=== PATIENT | male | born 1955 | race Hispanic/Latino ===

== ENCOUNTER 2018-10-19 14:41 | Emergency (ER) | payer SELFPAY ==
[2018-10-19] MEDS ORDERED: IBUPROFEN 400 MG TAB ONE (17:35)
--- NOTE | 2018-10-19 18:07 | RAD REPORT ---
EXAM DESCRIPTION: RAD - Knee Right 3 View - 10/19/2018 5:56 pm CLINICAL HISTORY: Right knee pain. FINDINGS: No fracture or dislocation is seen. The bones are osteoporotic. Marked osteoarthritis involves medial compartment consisting joint space narrowing and osteophytes. Patellofemoral compartments and lateral compartments are also involved
--- NOTE | 2018-10-19 18:56 | EDPHYS ---
Physician Documentation [facility] Name: Rishabh Jackson Age: 62 yrs Sex: Male : 1955 Arrival Date: 10/19/2018 Time: 14:45 Bed Treatment Private MD: ED Physician Oli Cox HPI: 10/19 17:09 This 62 yrs old Male presents to ER via Ambulatory with complaints of Knee cp Pain. 17:10 The patient presents with pain, that is acute. cp 17:10 The complaints affect the right knee. Context: resulted from an unknown cause, the cp patient can fully bear weight, the patient is able to ambulate, with moderate difficulty, history of previous surgery. Onset: The symptoms/episode began/occurred yesterday. Associated signs and symptoms: Pertinent positives: radiating pain described as spasm down front of right lower leg, Pertinent negatives calf tenderness, numbness, warmth. Treatment prior to arrival includes: no previous treatment. Historical: - Allergies: 15: No Known Allergies; tw2 - Home Meds: 15:01 None [Active]; tw2 - PSHx: 15:01 RIGHT KNEE SX (40yrs ago); tw2 - Immunization history:: Adult Immunizations. - Social history:: Smoking status: . - Ebola Screening: : Patient denies travel to an Ebola-affected area in the 21 days before illness onset. ROS: 17:20 Constitutional: Negative for body aches, chills, fever, poor PO intake. cp 17:20 Eyes: Negative for injury, pain, redness, and discharge. cp 17:20 ENT: Negative for drainage from ear(s), ear pain, sore throat, difficulty swallowing, difficulty handling secretions. 17:20 Cardiovascular: Negative for chest pain, edema, palpitations. 17:20 Respiratory: Negative for cough, shortness of breath, wheezing. 17:20 Abdomen/GI: Negative for abdominal pain, nausea, vomiting, and diarrhea. 17:20 MS/extremity: Positive for pain, tenderness, of the right knee, Negative for injury or acute deformity, decreased range of motion, paresthesias, warmth. 17:20 All other systems are negative. Exam: 17:25 Constitutional: The patient appears in no acute distress, alert, awake, cp non-diaphoretic, non-toxic, well developed, well nourished. 17:25 Head/Face: Normocephalic, atraumatic. cp 17:25 Eyes: Periorbital structures: appear normal, Conjunctiva: normal, no exudate, no injection, Sclera: no appreciated abnormality, Lids and lashes: appear normal. 17:25 ENT: External ear(s): are unremarkable, Nose: is normal, Mouth: is normal, Posterior pharynx: Airway: no evidence of obstruction, patent. 17:25 Chest/axilla: Inspection: normal. 17:25 Cardiovascular: Rate: normal, Rhythm: regular, Edema: is not appreciated. 17:25 Respiratory: the patient does not display signs of respiratory distress, Respirations: normal, no use of accessory muscles, no retractions, no splinting, no tachypnea. 17:25 Musculoskeletal/extremity: Extremities: grossly normal except: noted in the right knee: pain, tenderness, mild swelling lateral joint line right knee, There is no evidence of decreased ROM, erythema, ROM: limited passive range of motion due to pain, in the right knee, DVT Exam: no swelling, no tenderness, negative Homans' sign noted on exam, no erythema, no increased warmth. Vital Signs: 14:59 BP 142 / 84; Pulse 72; Resp 17; Temp 97.4(TE); Pulse Ox 97% on R/A; Weight 79.38 kg tw2 (R); Pain 0/10; 18:30 Pain 0/10; ss 14:59 "when it happens it a 10 of 10" tw2 MDM: 16:51 Patient medically screened. cp 17:30 Differential diagnosis: closed fracture, tendonitis, ligament injury, meniscus tear, cp effusion. 18:54 Data reviewed: vital signs, nurses notes, radiologic studies, plain films. cp 18:54 Test interpretation: by ED physician or midlevel provider: plain radiologic studies. cp Counseling: I had a detailed discussion with the patient and/or guardian regarding: the historical points, exam findings, and any diagnostic results supporting the discharge/admit diagnosis, radiology results, the need for outpatient follow up, a orthopedic surgeon, to return to the emergency department if symptoms worsen or persist or if there are any questions or concerns that arise at home. Response to treatment: the patient's symptoms have markedly improved after treatment, and as a result, I will discharge patient. 10/19 17:09 Order name: XRAY Knee RIGHT 3 view cp Administered Medications: 17:25 Drug: Ibuprofen 800 mg Route: PO; ss 19:05 Follow up: Response: No adverse reaction; Marked relief of symptoms; Pain is decreased ss Disposition: 10/20 07:28 Co-signature as Attending Physician, Oli Cox MD I agree with the assessment and wa plan of care. Disposition: 10/19/18 18:55 Discharged to Home. Impression: Pain in right knee. - Condition is Stable. - Discharge Instructions: Knee Pain. - Prescriptions for Diclofenac Sodium 75 mg Oral Tablet, Delayed Release (E.C.) - take 1 tablet by ORAL route 2 times per day; 20 tablet. Tramadol 50 mg Oral Tablet - take 1 tablet by ORAL route every 8 hours as needed; 12 tablet. - Medication Reconciliation Form, Thank You Letter, Antibiotic Education, Prescription Opioid Use form. - Follow up: Chidi Moser MD; When: 1 - 2 days; Reason: Recheck today's complaints. - Problem is new. - Symptoms have improved. Signatures: Dispatcher [employer] EDKeyana Sims RN RN ss Jordi Bianchi PA PA cp Alondra Jackson RN RN tw2 Oli Cox MD MD ma Corrections: (The following items were deleted from the chart) 10/19 19:05 18:55 10/19/2018 18:55 Discharged to Home. Impression: Pain in right knee. Condition is ss Stable. Forms are Medication Reconciliation Form, Thank You Letter, Antibiotic Education, Prescription Opioid Use. Follow up: Chidi Moser; When: 1 - 2 days; Reason: Recheck today's complaints. Problem is new. Symptoms have improved. cp
--- NOTE | 2018-10-19 18:56 | ER ---
Nurse's Notes [facility] Name: Rishabh Jackson Age: 62 yrs Sex: Male : 1955 Arrival Date: 10/19/2018 Time: 14:45 Bed Treatment Private MD: Diagnosis: Pain in right knee Presentation: 10/19 14:58 Presenting complaint: Patient states: i had my knee operated on 40 years ago, i am tw2 getting a muscle spasm that starts at my knee and runs down, the spasming yesterday after noon, it happens every 3 or 4 years, pt denies swelling, pt denies falling, pt denies doing anything that would have caused it. Transition of care: patient was not received from another setting of care. Onset of symptoms was October 19, 2018. Risk Assessment: Do you want to hurt yourself or someone else? Patient reports no desire to harm self or others. Initial Sepsis Screen: Does the patient meet any 2 criteria? No. Patient's initial sepsis screen is negative. Does the patient have a suspected source of infection? No. Patient's initial sepsis screen is negative. Note pt ambulating with one crutch in waiting room. Care prior to arrival: None. 14:58 Method Of Arrival: Ambulatory tw2 14:58 Acuity: RHONDA 4 tw2 Triage Assessment: 15:01 General: Appears in no apparent distress. Behavior is calm, cooperative, appropriate tw2 for age. Pain: Complains of pain in right knee. Historical: - Allergies: 15:01 No Known Allergies; tw2 - Home Meds: 15:01 None [Active]; tw2 - PSHx: 15:01 RIGHT KNEE SX (40yrs ago); tw2 - Immunization history:: Adult Immunizations. - Social history:: Smoking status: . - Ebola Screening: : Patient denies travel to an Ebola-affected area in the 21 days before illness onset. Screenin:26 Abuse screen: Denies threats or abuse. Denies injuries from another. Nutritional ss screening: No deficits noted. Tuberculosis screening: No symptoms or risk factors identified. Never had TB. Fall Risk No fall in past 12 months (0 pts). Secondary diagnosis (15 points) impaired mobility, No IV (0 pts). Ambulatory Aid- Crutches/Cane/Walker (15 pts). Gait- Impaired (20 pts.). Mental Status- Oriented to own ability (0 pts). Assessment: 16:55 General: Appears uncomfortable, Behavior is calm, cooperative. Pain: Complains of pain ss in right knee Pain currently is 5 out of 10 on a pain scale. Is continuous. Neuro: Level of Consciousness is awake, alert, obeys commands, Oriented to person, place, time, situation. Respiratory: Respiratory effort is even, unlabored. Derm: Skin is intact, is healthy with good turgor, Skin is pink, warm \\T\\ dry. normal. Musculoskeletal: Circulation, motion, and sensation intact. Range of motion: intact in all extremities. 18:26 Reassessment: Patient appears in no apparent distress at this time. Patient and/or ss family updated on plan of care and expected duration. Pain level reassessed. Patient is alert, oriented x 3, equal unlabored respirations, skin warm/dry/pink. Patient denies pain at this time. Patient states feeling better. Patient states symptoms have improved. Vital Signs: 14:59 BP 142 / 84; Pulse 72; Resp 17; Temp 97.4(TE); Pulse Ox 97% on R/A; Weight 79.38 kg tw2 (R); Pain 0/10; 18:30 Pain 0/10; ss 14:59 "when it happens it a 10 of 10" tw2 ED Course: 14:45 Patient arrived in ED. tw3 14:59 Triage completed. tw2 15:01 Arm band placed on. tw2 16:51 [facility]. cp 16:51 Oli Cox MD is Attending Physician. cp 17:18 Keyana Damian, AQUILES is Primary Nurse. ss 17:49 X-ray completed. Portable x-ray completed in exam room. Patient tolerated procedure ml well. 17:52 XRAY Knee RIGHT 3 view In Process Unspecified. EDMS 18:26 Patient has correct armband on for positive identification. Bed in low position. Call ss light in reach. 18:26 No provider procedures requiring assistance completed. Patient did not have IV access ss during this emergency room visit. 18:55 Chidi Moser MD is Referral Physician. cp Administered Medications: 17:25 Drug: Ibuprofen 800 mg Route: PO; ss 19:05 Follow up: Response: No adverse reaction; Marked relief of symptoms; Pain is decreased ss Outcome: 18:55 Discharge ordered by . henrique 19:04 Discharged to home ambulatory, with family. ss 19:04 Condition: good 19:04 Discharge instructions given to patient, family, Instructed on discharge instructions, follow up and referral plans. medication usage, Demonstrated understanding of instructions, follow-up care, medications, Prescriptions given X 2. 19:05 Patient left the ED. ss Signatures: Dispatcher [employer] EDSondra Mendoza Shelby RN RN ss Jordi Bianchi, Alondra Blunt cp RN RN tw2 Karoline Alvarez tw3
== END 2018-10-19 19:05 | disposition home or self-care (01) ==
LOC: ER 14:41
DX: M25.561 Pain in right knee (principal)
CPT/HCPCS: 99283

== ENCOUNTER 2020-12-04 07:15 | Emergency (ER) | payer OTHER, SELFPAY ==
--- OUTSIDE RECORDS SUMMARY | 2020-12-04 07:18 | XMS REPORT | Continuity of Care Document ---
:1955 Author Organization [facility] t Address [address] [place] [address] Care Team Providers Name Role Phone Doctor Unassigned, Name Attending Clinician Unavailable Shy RICHTER, L Attending Clinician Problems Condition Condition Condition Status Onset Resolution Last Treating Co mments Source Name Details Category Date Date Treatment Clinician Date Osteoarthr Osteoarthr Problem Active [facility] 1[facility]05 da knee Knee 00:00: Medical 00 Group Pain in Pain in Problem Active [facility] right knee Right Knee 1-05 da 00:00: Medical 00 Group Allergies, Adverse Reactions, Alerts This patient has no known allergies or adverse reactions. Social History Smoking Status Start Date Stop Date Source Former Smoker [facility] Medications Ordered Filled Start Stop Current Ordering Indication Dosage Frequency Signature Comments Components Source Medication Medication Date Date Medication? Clinician (SIG) Name Name diclofenac diclofenac No diclofenac [facility] sodium 75 sodium 75 sodium 75 da mg mg mg Medical tablet,rocky tablet,rocky tablet,del Group yed release yed release ayed TAKE 1 TAKE 1 release TABLET BY TABLET BY TAKE 1 MOUTH TWICE MOUTH TWICE TABLET BY DAILY WITH DAILY WITH MOUTH MEALS MEALS TWICE DAILY WITH MEALS Vital Signs Vital Name Observation Time Observation Value Comments Source BP Diastolic 2020-07-30 00:00:00 81 mm[Hg] [facility] Height 2020-07-30 00:00:00 66 [in_i] [facility] BMI (Body Mass 2020-07-30 00:00:00 30.3 kg/m2 [facility]) Group BP Systolic 2020-07-30 00:00:00 145 mm[Hg] [facility] Body Weight 2020-07-30 00:00:00 3008 [oz_av] [facility] Procedures This patient has no known procedures. Encounters Start End Encounter Admission Attending Care Care Encounter Source Date/Time Date/Time Type Type Clinicians Facility Department ID 2020-07-30 2020-07-30 Travon Rad[facility] [place] - [id number] [facility] 00:00:00 00:00:00 MD Noah: [facility] [address] [facility] [address], [facility], [place] [address] , Ph. 2020-07-30 2020-07-30 Orders Doctor JULIENNE [id number] 00:00:00 00:00:00 Only Unassigned, DAMERON [id number] [facility] [id number] 2020-06-06 2020-06-06 Office DEBBIE Begum [id number] 15:03:33 15:31:36 Visit [facility] [id number] Surgical [id number] Specialti [id number] [place] Results This patient has no known results.
[2020-12-04] MEDS ORDERED: THIAMINE 200 MG/2 ML INJ ONE (08:10)
[2020-12-04] MEDS ORDERED: ONDANSETRON 4 MG/2 ML VIAL ONE (08:11)
[2020-12-04] MEDS ORDERED: NA CHLORIDE 0.9% 500 ML ONE (08:11)
[2020-12-04] MEDS ORDERED: NA CHLORIDE 0.9% 1,000 ML ONE (08:11)
[2020-12-04] MEDS ORDERED: MORPHINE 4 MG/ML SYR ONE (08:11)
[2020-12-04 08:14] LABS: Absolute Lymphocytes (CBC) 1.4 K/uL (0.7-4.9); Basophils % 0.7 % (0-1.3); Hematocrit 46.8 % (39.6-49.0); Lymphocytes % 12.9 % (15.3-44.8); MPV 9.2 fL (7.6-11.3); RBC Red Blood Cell Count 4.81 M/uL (4.33-5.43)
[2020-12-04 08:39] LABS: ALT/SGPT 43 U/L (12-78); Albumin 3.9 g/dL (3.4-5.0); Alkaline Phosphatase 65 U/L (45-117); BUN Blood Urea Nitrogen 8 mg/dL (7-18); Bicarbonate 24 mmol/L (21-32); Bilirubin Direct < 0.1 mg/dL (0-0.2); Bilirubin Total 0.4 mg/dL (0.2-1.0); Glucose Level 110 mg/dL (74-106); NT PRO-BNP 52 pg/mL (<125); Protein, Total 7.9 g/dL (6.4-8.2); Sodium Level 136 mmol/L (136-145); Troponin (Emerg Dept Use Only) < 0.02 ng/mL (0.0-0.045)
--- NOTE | 2020-12-04 08:44 | RAD REPORT ---
EXAM DESCRIPTION: RAD - Chest Single View - 12/04/2020 8:21 am CLINICAL HISTORY: COUGH Chest pain. COMPARISON: No comparisons FINDINGS: Portable technique limits examination quality. The lungs are grossly clear. The heart is normal in size. No displaced fractures. IMPRESSION: No acute intrathoracic process suspected.
[2020-12-04 08:46] LABS: AST/SGOT 24 U/L (15-37); Magnesium 2.2 mg/dL (1.8-2.4)
[2020-12-04 08:47] LABS: Urine Blood Negative (Negative); Urine Glucose Negative (Negative); Urine Protein Negative (Negative); Urine Specific Gravity 1.025 (1.005-1.030); Urine pH 6.5 (5.0-7.0)
[2020-12-04 09:14] LABS: Protime INR 1.02
--- NOTE | 2020-12-04 09:47 | RAD REPORT ---
EXAM DESCRIPTION: CT - CTHCSPWOC - 12/04/2020 9:13 am CLINICAL HISTORY: Trauma, head and neck injury. PAIN COMPARISON: Neck Angio dated 12/04/2020 TECHNIQUE: Axial 5 mm thick images of the head were obtained. Axial 2 mm thick images of the cervical spine were obtained with sagittal and coronal reconstruction images generated and reviewed. All CT scans are performed using dose optimization technique as appropriate and may include automated exposure control or mA/KV adjustment according to patient size. FINDINGS: CT HEAD WITHOUT CONTRAST: No acute hemorrhage, hydrocephalus or extra-axial collection is identified.Mild brain atrophyNo areas of brain edema or midline shift. The paranasal sinuses and mastoids are clear.The calvarium is intact. CT CERVICAL SPINE WITHOUT CONTRAST: No fracture or subluxation.Mild lower cervical degenerative changes.No prevertebral soft tissues swel ling is identified. Enlarged thyroid goiter is seen. IMPRESSION: No acute intracranial or cervical spine findings. Enlarged thyroid goiter.
--- NOTE | 2020-12-04 09:49 | RAD REPORT ---
EXAM DESCRIPTION: CT - Head angio - 12/04/2020 9:13 am CLINICAL HISTORY: HEADACHE Headache, drowsiness COMPARISON: No comparisons TECHNIQUE: CT angiography of the head was performed with MIPs. All CT scans are performed using dose optimization technique as appropriate and may include automated exposure control or mA/KV adjustment according to patient size. FINDINGS: No evidence of aneurysm is detected. No flow-limiting stenosis or vascular malformation id entified. Antegrade flow is seen in the vertebral arteries. The vertebral arteries are codominant. The visualized dural venous sinuses are patent. IMPRESSION: No significant flow abnormality is detected.
--- NOTE | 2020-12-04 09:53 | RAD REPORT ---
EXAM DESCRIPTION: CT - Neck Angio - 12/04/2020 9:13 am CLINICAL HISTORY: headache COMPARISON: No comparisons TECHNIQUE: CT angiography of the neck vessels was performed with MIPs. All CT scans are performed using dose optimization technique as appropriate and may include automated exposure control or mA/KV adjustment according to patient size. FINDINGS: A left aortic arch is identified with normal three vessel configuration of the great vesse ls. No significant flow abnormality is seen of the common carotid bilaterally. Mild narrowing of both carotid bulbs, slightly greater on the left. No significant carotid stenosis s een. Normal flow is seen within both vertebral arteries. Prominent thyroid goiter seen. IMPRESSION: No significant carotid stenosis suspected.
[2020-12-04 10:05] LABS: Barbiturates NEGATIVE (NEGATIVE); Benzodiazepines NEGATIVE (NEGATIVE); Cocaine NEGATIVE (NEGATIVE); METHAMPHETAM NEGATIVE (NEGATIVE); Methadone NEGATIVE (NEGATIVE); Opiates NEGATIVE (NEGATIVE); Phencyclidine NEGATIVE (NEGATIVE); THC Cannibis POSITIVE (NEGATIVE)
[2020-12-04] MEDS ORDERED: dexAMETHasone 10 MG/ML VIAL ONE (10:11)
[2020-12-04] MEDS ORDERED: KETOROLAC 30 MG/ML INJ ONE (10:11)
--- NOTE | 2020-12-04 10:12 | EDPHYS ---
Physician Documentation [facility] Name: Rishabh Jackson Age: 64 yrs Sex: Male : 1955 Arrival Date: 12/04/2020 Time: 07:20 Bed 18 Private MD: LAMIN Physician Jordi Mckeon HPI: 12/04 08:37 This 64 yrs old Male presents to ER via Wheelchair with complaints of Headache ajit and neck pain. 08:37 The patient complains of pain to the left side of the back of head, left occipital ajit area, left base of the skull, right side of the back of head, right occipital area and right base of the skull. The patient describes the headache as aching, constant. Onset: The symptoms/episode began/occurred 3 day(s) ago. Associated signs and symptoms: Pertinent positives: neck stiffness. Severity of symptoms: in the emergency department the pain is unchanged. Headache History: The patient has had previous headaches and this one is different than previous episodes. The symptoms are alleviated by remaining still, the symptoms are aggravated by movement. The patient has experienced similar episodes in the past, a few times. Historical: - Allergies: 07:33 No Known Allergies; tr6 - Home Meds: 07:33 None [Active]; tr6 - PMHx: 07:33 None; tr6 - PSHx: 07:33 None; tr6 - Immunization history:: Adult Immunizations up to date. - Social history:: Smoking status: Patient reports use of chewing tobacco. Patient uses alcohol, claims drinking about a 6 pack/day. street drugs, marijuana. - Family history:: not pertinent. ROS: 08:37 Constitutional: Negative for fever, chills, and weight loss, Eyes: Negative for injury, ajit pain, redness, and discharge, ENT: Negative for injury, pain, and discharge, Cardiovascular: Negative for chest pain, palpitations, and edema, Respiratory: Negative for shortness of breath, cough, wheezing, and pleuritic chest pain, Abdomen/GI: Negative for abdominal pain, nausea, vomiting, diarrhea, and constipation, Back: Negative for injury and pain, : Negative for injury, bleeding, discharge, and swelling, MS/Extremity: Negative for injury and deformity, Skin: Negative for injury, rash, and discoloration, Neuro: Negative for headache, weakness, numbness, tingling, and seizure, Psych: Negative for depression, anxiety, suicide ideation, homicidal ideation, and hallucinations, Allergy/Immunology: Negative for hives, rash, and allergies, Endocrine: Negative for neck swelling, polydipsia, polyuria, polyphagia, and marked weight changes, Hematologic/Lymphatic: Negative for swollen nodes, abnormal bleeding, and unusual bruising. 08:37 Neck: Positive for injury or acute deformity, pain with movement, pain at rest, tenderness, of the base of the skull. Exam: 08:37 Constitutional: This is a well developed, well nourished patient who is awake, alert, ajit and in no acute distress. Head/Face: Normocephalic, atraumatic. Eyes: Pupils equal round and reactive to light, extra-ocular motions intact. Lids and lashes normal. Conjunctiva and sclera are non-icteric and not injected. Cornea within normal limits. Periorbital areas with no swelling, redness, or edema. ENT: Nares patent. No nasal discharge, no septal abnormalities noted. Tympanic membranes are normal and external auditory canals are clear. Oropharynx with no redness, swelling, or masses, exudates, or evidence of obstruction, uvula midline. Mucous membranes moist. Chest/axilla: Normal chest wall appearance and motion. Nontender with no deformity. No lesions are appreciated. Cardiovascular: Regular rate and rhythm with a normal S1 and S2. No gallops, murmurs, or rubs. Normal PMI, no JVD. No pulse deficits. Respiratory: Lungs have equal breath sounds bilaterally, clear to auscultation and percussion. No rales, rhonchi or wheezes noted. No increased work of breathing, no retractions or nasal flaring. Abdomen/GI: Soft, non-tender, with normal bowel sounds. No distension or tympany. No guarding or rebound. No evidence of tenderness throughout. Back: No spinal tenderness. No costovertebral tenderness. Full range of motion. Male : Normal genitalia with no discharge or lesions. Skin: Warm, dry with normal turgor. Normal color with no rashes, no lesions, and no evidence of cellulitis. MS/ Extremity: Pulses equal, no cyanosis. Neurovascular intact. Full, normal range of motion. Neuro: Awake and alert, GCS 15, oriented to person, place, time, and situation. Cranial nerves II-XII grossly intact. Motor strength 5/5 in all extremities. Sensory grossly intact. Cerebellar exam normal. Normal gait. Psych: Awake, alert, with orientation to person, place and time. Behavior, mood, and affect are within normal limits. 08:37 Neck: External neck: is normal, C-spine: ROM/movement: pain, that is moderate, with any movement, with rotation to the left, with rotation to the right, with extension, with flexion, limited range of motion. 09:59 ECG was reviewed by the Attending Physician. [facility] Vital Signs: 07:30 BP 166 / 81; Pulse 73; Resp 18; Temp 97.9(O); Pulse Ox 98% on R/A; tr6 08:53 BP 149 / 87; Pulse 73; Resp 18; Pulse Ox 98% ; tr6 11:12 BP 141 / 69; Pulse 61; Resp 18; Pulse Ox 99% ; tr6 Stedman Coma Score: 08:42 Eye Response: spontaneous(4). Verbal Response: oriented(5). Motor Response: obeys [facility] commands(6). Total: 15. MDM: 07:25 Patient medically screened. ajit 08:42 Differential diagnosis: tension headache. Data reviewed: vital signs, nurses notes, lab [facility] test result(s), EKG, radiologic studies, CT scan, plain films. Data interpreted: playground monitor: not applicable for this patient encounter. Pulse oximetry: on room air. Test interpretation: by ED physician or midlevel provider: ECG, plain radiologic studies. Counseling: I had a detailed discussion with the patient and/or guardian regarding: the historical points, exam findings, and any diagnostic results supporting the discharge/admit diagnosis, lab results, radiology results. 12/04 07:45 Order name: Basic Metabolic Panel [facility] 12/04 07:45 Order name: CBC with Diff [facility] 12/04 07:45 Order name: LFT's; Complete Time: 09:48 [facility] 12/04 07:45 Order name: Magnesium; Complete Time: 09:48 [facility] 12/04 07:45 Order name: NT PRO-BNP; Complete Time: 09:48 [facility] 12/04 07:45 Order name: PT-INR; Complete Time: 09:48 [facility] 12/04 07:45 Order name: Troponin (emerg Dept Use Only); Complete Time: 09:48 [facility] 12/04 07:45 Order name: XRAY Chest (1 view); Complete Time: 09:48 [facility] 12/04 07:45 Order name: UDS 12/04 07:45 Order name: ETOH Level; Complete Time: 09:48 [facility] 12/04 07:45 Order name: Basic Metabolic Panel; Complete Time: 09:48 EDMS 12/04 07:45 Order name: CBC with Automated Diff; Complete Time: 09:48 [facility] 12/04 08:46 Order name: Urine Dipstick-Ancillary; Complete Time: 09:48 [facility] 12/04 07:45 Order name: EKG; Complete Time: 07:46 [facility] 12/04 07:45 Order name: Cardiac monitoring; Complete Time: 08:17 [facility] 12/04 07:45 Order name: EKG - Nurse/Tech; Complete Time: 09:44 [facility] 12/04 07:45 Order name: IV Saline Lock; Complete Time: 08:17 [facility] 12/04 07:45 Order name: Labs collected and sent; Complete Time: 08:48 [facility] 12/04 07:45 Order name: CT Head Angio; Complete Time: 10:04 [facility] 12/04 08:37 Order name: CT Head C Spine; Complete Time: 09:48 [facility] 12/04 08:44 Order name: Neck Angio; Complete Time: 10:04 [facility] 12/04 07:45 Order name: O2 Per Protocol; Complete Time: 08:48 [facility] 12/04 07:45 Order name: O2 Sat Monitoring; Complete Time: 08:48 [facility] 12/04 07:45 Order name: Urine Dipstick-Ancillary (obtain specimen); Complete Time: 09:59 [facility] 12/04 08:22 Order name: Labs - recollect needed: recollect blue top; Complete Time: 08:59 bd EC:59 Rate is 62 beats/min. Rhythm is regular. QRS [place] is Normal. AR interval is normal. QRS ajit interval is normal. QT interval is normal. No Q waves. T waves are Normal. No ST changes noted. Clinical impression: Normal ECG and No evidence of ischemia. Interpreted by me. Reviewed by me. Administered Medications: 08:16 Drug: NS 0.9% 500 ml Route: IV; Rate: bolus; Site: right hand; tr6 08:59 Follow up: IV Status: Completed infusion; IV Intake: 500ml tr6 11:14 Follow up: IV Status: Completed infusion; IV Intake: 500ml tr6 08:16 Drug: Thiamine 100 mg Route: IV; Rate: bolus; Site: right hand; tr6 09:01 Follow up: Response: No adverse reaction tr6 08:16 Drug: morphine 4 mg Route: IVP; Site: right hand; tr6 08:59 Follow up: Response: No adverse reaction; Pain is decreased tr6 08:16 Drug: Zofran (Ondansetron) 4 mg Route: IVP; Site: right hand; tr6 08:59 Follow up: Response: No adverse reaction tr6 08:17 CANCELLED (Duplicate Order): NS 0.9% 1000 ml IV at 125 ml/hr continuous tr6 08:48 Drug: NS 0.9% 1000 ml Route: IV; Rate: 125 ml/hr; Site: right hand; tr6 11:13 Follow up: IV Status: Completed infusion; IV Intake: 500ml tr6 09:59 Drug: TORadol (ketorolac) 30 mg Route: IVP; Site: right hand; tr6 11:12 Follow up: Response: No adverse reaction; Pain is decreased tr6 09:59 Drug: Decadron - Dexamethasone 10 mg Route: IVP; Site: right hand; tr6 11:12 Follow up: Response: No adverse reaction tr6 Disposition: 12/04/20 10:11 Discharged to Home. Impression: Headache, Strain of muscle, fascia and tendon at neck level. - Condition is Stable. - Discharge Instructions: Tension Headache, Adult, Cervical Sprain, [id number], Tension Headache, Auna-ta-Wyki. - Prescriptions for dexamethasone 2 mg Oral tablet - take 1 tablet by ORAL route 3 times per day; 15 tablet. Ibuprofen 600 mg Oral Tablet - take 1 tablet by ORAL route every 6 hours As needed take with food; 20 tablet. Tylenol- Codeine #3 300-30 mg Oral Tablet - take 2 tablets by ORAL route every 4-6 hours As needed; 20 tablet. Cyclobenzaprine 5 mg Oral Tablet - take 1 tablet by ORAL route 3 times per day As needed; 15 tablet. - Medication Reconciliation Form, Thank You Letter, Antibiotic Education, Prescription Opioid Use form. - Follow up: Private Physician; When: 2 - 3 days; Reason: Recheck today's complaints, Continuance of care, Re-evaluation by your physician. Follow up: kR Bonilla; When: 2 - 3 days; Reason: Recheck today's complaints, Continuance of care, Re-evaluation by your physician. - Problem is new. - Symptoms have improved. Signatures: Dispatcher [employer] EDWI Ana Barba Corey, MD MD cha Ramnanan, Tiffany, RN RN tr6 Corrections: (The following items were deleted from the chart) 08:17 07:45 NS 0.9% 1000 ml IV at 125 ml/hr continuous ordered. ajit tr6 08:39 07:46 Head Brain Wo Cont+CT.RAD.BRZ ordered. EDWI EDMS 11:37 10:11 12/04/2020 10:11 Discharged to Home. Impression: Headache; Strain of muscle, tr6 fascia and tendon at neck level. Condition is Stable. Discharge Instructions: Tension Headache, Adult, Cervical Sprain, [id number], Tension Headache, Eyri-yk-Mkow. Prescriptions for dexamethasone 2 mg Oral tablet - take 1 tablet by ORAL route 3 times per day; 15 tablet, Ibuprofen 600 mg Oral Tablet - take 1 tablet by ORAL route every 6 hours As needed take with food; 20 tablet, Tylenol-Codeine #3 300-30 mg Oral Tablet - take 2 tablets by ORAL route every 4-6 hours As needed; 20 tablet, Cyclobenzaprine 5 mg Oral Tablet - take 1 tablet by ORAL route 3 times per day As needed; 15 tablet. and Forms are Medication Reconciliation Form, Thank You Letter, Antibiotic Education, Prescription Opioid Use. Follow up: Private Physician; When: 2 - 3 days; Reason: Recheck today's complaints, Continuance of care, Re-evaluation by your physician. Follow up: Rk Bonilla; When: 2 - 3 days; Reason: Recheck today's complaints, Continuance of care, Re-evaluation by your physician. Problem is new. Symptoms have improved. ajit
--- NOTE | 2020-12-04 10:12 | ER ---
Nurse's Notes [facility] Name: Rishabh Jackson Age: 64 yrs Sex: Male : 1955 Arrival Date: 12/04/2020 Time: 07:20 Bed 18 Private MD: Diagnosis: Headache;Strain of muscle, fascia and tendon at neck level Presentation: 12/04 07:30 Chief complaint: Spouse and/or significant other states: headache beginning suddenly 3 tr6 days ago, but worse overnight prompting ED visit. pt moaning and clutching the back of his head in ED waiting room. Coronavirus screen: Client denies travel out of the [place] in the last 14 days. Ebola Screen: Patient negative for fever greater than or equal to 101.5 degrees Fahrenheit, and additional compatible Ebola Virus Disease symptoms Patient denies exposure to infectious person. Patient denies travel to an Ebola-affected area in the 21 days before illness onset. Initial Sepsis Screen: Does the patient meet any 2 criteria? No. Patient's initial sepsis screen is negative. Does the patient have a suspected source of infection? No. Patient's initial sepsis screen is negative. Risk Assessment: Do you want to hurt yourself or someone else? Patient reports no desire to harm self or others. Onset of symptoms was December 01, 2020. 07:30 Method Of Arrival: Wheelchair tr6 07:30 Acuity: RHONDA 3 tr6 Triage Assessment: 07:33 Headache History: Denies prior headaches. General: Appears distressed, Behavior is tr6 restless, pt moaning and clutching the back of his head. Pain: Pain currently is 9 out of 10 on a pain scale. Pain began suddenly, 2-3 days ago. Also complains of no other associated symptoms. Neuro: No deficits noted. Level of Consciousness is Oriented to person, place, time, situation, Appropriate for age Material Cutter are equal bilaterally Moves all extremities. Speech is normal, Facial symmetry appears normal, Intact Denies weakness blurred vision dizziness, difficulty swallowing, numbness. Cardiovascular: No deficits noted. Respiratory: No deficits noted. GI: No deficits noted. Patient currently denies nausea, vomiting. : No deficits noted. Denies. Derm: No deficits noted. Musculoskeletal: Reports baseline weakness in his leg due to knee pain. Historical: - Allergies: 07:33 No Known Allergies; tr6 - Home Meds: 07:33 None [Active]; tr6 - PMHx: 07:33 None; tr6 - PSHx: 07:33 None; tr6 - Immunization history:: Adult Immunizations up to date. - Social history:: Smoking status: Patient reports use of chewing tobacco. Patient uses alcohol, claims drinking about a 6 pack/day. street drugs, marijuana. - Family history:: not pertinent. Screenin:38 Abuse screen: Denies threats or abuse. Denies injuries from another. Nutritional tr6 screening: No deficits noted. Tuberculosis screening: No symptoms or risk factors identified. Fall Risk Fall in past 12 months (25 points). Assessment: 07:38 Reassessment: see triage assessment. tr6 09:01 Reassessment: pt transported to CT via wheelchair. Pain: Current management is with tr6 Morphine, pt reports that he had some relief with morphine. 09:21 Reassessment: pt returned from CT. at bedside. tr6 Vital Signs: 07:30 BP 166 / 81; Pulse 73; Resp 18; Temp 97.9(O); Pulse Ox 98% on R/A; tr6 08:53 BP 149 / 87; Pulse 73; Resp 18; Pulse Ox 98% ; tr6 11:12 BP 141 / 69; Pulse 61; Resp 18; Pulse Ox 99% ; tr6 Tushar Coma Score: 08:42 Eye Response: spontaneous(4). Verbal Response: oriented(5). Motor Response: obeys ajit commands(6). Total: 15. ED Course: 07:20 Patient arrived in ED. mr 07:25 Jordi Mckeon MD is Attending Physician. ajit 07:30 Melissa Byrne RN is Primary Nurse. tr6 07:32 Triage completed. tr6 07:38 Arm band placed on right wrist. tr6 07:38 Patient has correct armband on for positive identification. Fall risk band placed. Bed tr6 in low position. Call light in reach. Side rails up X 1. 07:38 No provider procedures requiring assistance completed. tr6 08:17 XRAY Chest (1 view) Sent. tr6 08:17 Inserted saline lock: 18 gauge in right hand, using aseptic technique. Blood collected. tr6 08:21 XRAY Chest (1 view) In Process Unspecified. EDMS 09:13 CT Head Angio In Process Unspecified. EDMS 09:13 CT Head C Spine In Process Unspecified. EDMS 09:13 Neck Angio In Process Unspecified. EDMS 09:44 EKG done, by ED staff, reviewed by Jordi Mckeon MD. em1 10:11 Rk Bonilla MD is Referral Physician. ajit 11:12 IV discontinued, intact, bleeding controlled, No redness/swelling at site. Pressure tr6 dressing applied. Administered Medications: 08:16 Drug: NS 0.9% 500 ml Route: IV; Rate: bolus; Site: right hand; tr6 08:59 Follow up: IV Status: Completed infusion; IV Intake: 500ml tr6 11:14 Follow up: IV Status: Completed infusion; IV Intake: 500ml tr6 08:16 Drug: Thiamine 100 mg Route: IV; Rate: bolus; Site: right hand; tr6 09:01 Follow up: Response: No adverse reaction tr6 08:16 Drug: morphine 4 mg Route: IVP; Site: right hand; tr6 08:59 Follow up: Response: No adverse reaction; Pain is decreased tr6 08:16 Drug: Zofran (Ondansetron) 4 mg Route: IVP; Site: right hand; tr6 08:59 Follow up: Response: No adverse reaction tr6 08:17 CANCELLED (Duplicate Order): NS 0.9% 1000 ml IV at 125 ml/hr continuous tr6 08:48 Drug: NS 0.9% 1000 ml Route: IV; Rate: 125 ml/hr; Site: right hand; tr6 11:13 Follow up: IV Status: Completed infusion; IV Intake: 500ml tr6 09:59 Drug: TORadol (ketorolac) 30 mg Route: IVP; Site: right hand; tr6 11:12 Follow up: Response: No adverse reaction; Pain is decreased tr6 09:59 Drug: Decadron - Dexamethasone 10 mg Route: IVP; Site: right hand; tr6 11:12 Follow up: Response: No adverse reaction tr6 Intake: 08:59 IV: 500ml; Total: 500ml. tr6 11:13 IV: 500ml; Total: 1000ml. tr6 11:14 IV: 500ml; Total: 1500ml. tr6 Outcome: 10:11 Discharge ordered by . ajit 11:11 Discharged to home via wheelchair. tr6 11:11 Condition: good 11:11 Discharge instructions given to patient, family, significant other, Instructed on discharge instructions, follow up and referral plans. safety practices, Demonstrated understanding of instructions, follow-up care. 11:37 Patient left the ED. tr6 Signatures: Dispatcher [employer] EDJordi Lal MD MD cha Rivera, Devon Knight Tiffany, RN RN tr6
[2020-12-04] MEDS ORDERED: NA CHLORIDE 0.9% 50 ML ONE (10:13)
[2020-12-04 11:46] VITALS: TEMP 97.9
[2020-12-04 11:49] VITALS: BP 141/69; O2SAT 99
== END 2020-12-04 11:37 | disposition home or self-care (01) ==
LOC: ER 07:15
DX: S16.1XXA Strain of muscle, fascia and tendon at neck level, initial encounter (principal); F17.220 Nicotine dependence, chewing tobacco, uncomplicated
CPT/HCPCS: 96361; 85025; 80048; 36415; 80320; 83735; 85610; 80076; 80307 ×8; 81003; 84484; 83880; 70450; 72125; 70496; 70498; 71045; 96375; 96374; 99284; Q9967; J3411; J1100; J7040; J7030; J2405

== ENCOUNTER 2021-06-20 12:55 | Emergency (ER) | payer OTHER ==
--- OUTSIDE RECORDS SUMMARY | 2021-06-20 12:58 | XMS REPORT | Continuity of Care Document ---
:1955 Author Organization [facility] t Address [address] [place] [address] [address] [place] [address] Care Team Providers Name Role Phone Hafsa Attending Clinician Unavailable CHLOÉ_LANNY Attending Clinician Unavailable A_Byrd Attending Clinician Unavailable JUDI Attending Clinician Unavailable Doctor Unassigned, Name Attending Clinician Unavailable Roxi RICHTER L Attending Clinician Ananth DIANE Attending Clinician Unavailable Hafsa Admitting Clinician Unavailable CHLOÉ_LANNY Admitting Clinician Unavailable A_Byrd Admitting Clinician Unavailable Payers Payer Name Policy Type Policy Number Effective Date Expiration Date ebony [facility] [id number] [place] [id number] [place] [place] [facility] [id number] 2021 2021 HEALTH PLAN 00:00:00 00:00:00 Problems Condition Condition Condition Status Onset Resolution Last Treating Co mments Source Name Details Category Date Date Treatment Clinician Date Osteoarthr Osteoarthr Problem Active [facility] it[facility] of itis of 1-05 da knee Knee 00:00: Medical 00 Group Pain in Pain in Problem Active [place] right knee Right Knee 1-05 da 00:00: Medical 00 Group Allergies, Adverse Reactions, Alerts Allergy Allergy Status Severity Reaction(s) Onset Inactive Treating Comm ents Source Name Type Date Date Clinician NO KNOWN Drug Active Univers ALLERGIE Class ity of [facility] Social History Social Habit Start Date Stop Date Quantity Comments Source History of Chews Tobacco University of tobacco use [facility] Sex Assigned At Universit y of [facility] Exposure to Not sure [facility] SARS-CoV-2 [place] [facility] (event) Branch Tobacco use and 2020-06-06 2020-06-06 Current user Univers ity of exposure 00:00:00 00:00:00 [facility] Alcohol intake 2020-06-06 2020-06-06 [facility] 00:00:00 00:00:00 [facility] Smoking Status Start Date Stop Date Source Former Smoker [facility] Never smoker [facility] Medications Ordered Filled Start Stop Current Ordering Indication Dosage Frequency Signature Comments Components Source Medication Medication Date Date Medication? Clinician (SIG) Name Name diclofenac 2019-07 Yes 75mg Take 1 Unive rs 75 mg EC 1-12 tablet by ity of tablet 00:00: mouth 2 (two) Medical times Branch daily with meals. diclofenac 2019-07 Yes 75mg Take 1 Unive rs 75 mg EC 1-12 tablet by ity of tablet 00:00: mouth 2 [place] (two) Medical times Branch daily with meals. diclofenac 2019-07 Yes 75mg Take 1 Unive rs 75 mg EC 1-12 tablet by ity of tablet 00:00: mouth 2 [place] (two) Medical times Branch daily with meals. diclofenac Yes [id number] 75mg Take 1 Univers 75 mg EC 5-06 9102 tablet by ity of tablet 00:00: mouth [place] (two) Medical times Branch daily with meals. diclofenac Yes [id number] 75mg Take 1 Univers 75 mg EC 5-06 9102 tablet by ity of tablet 00:00: mouth 2 [place] (two) Medical times Branch daily with meals. diclofenac Yes [id number] 75mg Take 1 Univers 75 mg EC 5-06 9102 tablet by ity of tablet 00:00: mouth 2 [place] (two) Medical times Branch daily with meals. traMADOL 50 2018- Yes Univer s mg tablet 3-27 ity of 00:00: [place] 00 Medical Branch traMADOL 50 2019-0 Yes Univer s mg tablet 3-27 ity of 00:00: [place] 00 Medical Branch traMADOL 50 2019-0 Yes Univer s mg tablet 3-27 ity of 00:00: [place] 00 Medical Branch acetaminoph 2017-0 Yes 1{tbl} Take 1 Un saleem en-codeine 1-11 tablet by ity of (TYLENOL-CO 00:00: mouth [place] DEINE #3) 00 every 4 Medical 300-30 mg (four) Branch tablet hours as needed for Pain (scale 4-6) or Pain (scale 7-10). acetaminoph 2017-0 Yes 1{tbl} Take 1 Un saleem en-codeine 1-11 tablet by ity of (TYLENOL-CO 00:00: mouth [place] DEINE #3) 00 every 4 Medical 300-30 mg (four) Branch tablet hours as needed for Pain (scale 4-6) or Pain (scale 7-10). acetaminoph 2017-0 Yes 1{tbl} Take 1 Un saleem en-codeine 1-11 tablet by ity of (TYLENOL-CO 00:00: mouth [place] DEINE #3) 00 every 4 Medical 300-30 mg (four) Branch tablet hours as needed for Pain (scale 4-6) or Pain (scale 7-10). diclofenac diclofenac No diclofenac [place] sodium 75 [...] Source BP Diastolic 2020-07-30 00:00:00 81 mm[Hg[facility] Height 2020-07-30 00:00:00 66 [in_i] [facility] BMI (Body Mass 2020-07-30 00:00:00 30.3 kg/m2 [facility] Group BP Systolic 2020-07-30 00:00:00 145 mm[Hg] [place] [facility] Body Weight 2020-07-30 00:00:00 3008 [oz_av] [facility] Systolic blood 2020-06-06 21:19:00 146 mm[Hg] [facility] pressure Medical [place] Diastolic blood 2020-06-06 21:19:00 86 mm[Hg] [facility] Medical [place] Heart rate 2020-06-06 21:19:00 71 /min [facility] Body height 2020-06-06 21:11:00 167.6 cm [facility] Systolic blood 2020-06-06 21:19:00 146 mm[Hg] Univer sity [facility] pressure Medical Branch Diastolic blood 2020-06-06 21:19:00 86 mm[Hg] Unive rsity [facility] Heart rate 2020-06-06 21:19:00 71 /min [facility] Body height 2020-06-06 21:11:00 167.6 cm [facility] Procedures Procedure Date / Time Performed Performing Clinician Sourc e REFERRAL- 2020-07-30 06:01:00 Doctor Unassigned, No Anant [facility] REQUEST/RESPONSE Name Medical Branch Encounters Start End Encounter Admission Attending Care Care Encounter Source Date/Time Date/Time Type Type Clinicians Facility Department ID 2021-06-11 Outpatient cMcDonald [facility] [id number] [place] 13:39:35 1221 Medical Group 2021-06-11 Outpatient AMBREEN_FAR [facility] 2019 [place] 12:53:12 HANA 1209 da [facility] 2021-06-06 Outpatient A_Byrd [facility] [id number] [place] 15:39:56 0106 Medical Group 2021-06-06 Outpatient A_Byrd [facility] [id number] [place] 15:30:23 0105 Medical Group 2021-05-08 Outpatient [facility] [id number] [place] 13:05:39 [facility] 2021-03-19 Outpatient LAU, [facility] [id number] [place] 15:59:28 [facility] 2020-07-30 2020-07-30 Travon Garcia [facility] [place] - [id number] M [facility] 00:00:00 00:00:00 MD Noah: [address] Network [facility] - [address], [place] [address] , Ph. 2020-07-30 2020-07-30 Orders Doctor ROBINS [id number] Univers 00:00:00 00:00:00 Only Unassigned, KENYA [id number] ity of [place] [facility] [id number] Tonny as [id number] [address] 2020-07-30 2020-07-30 Orders Doctor JULIENNE [id number] 00:00:00 00:00:00 Only Unassigned, KENYA [id number] [place] [facility] [id number] [facility] 2020-06-06 2020-06-06 Office Roxi [facility] [id number] Univers 15:03:33 15:31:36 Visit [facility] [id number] it y of Surgical [id number] Tonny as Specialti [id number] Nm dical 198 [facility] 2020-06-06 2020-06-06 Office Roxi [facility] [id number] 15:03:33 15:31:36 Visit [facility] [id number] Surgical [id number] Specialti [id number] [address] 2020-06-06 2020-06-06 Outpatient R ROXI [facility] [id number] Univers 15:00:00 15:00:[address] [place] [address] 2020-06-06 2020-06-06 Outpatient Tim DIANE [facility] [id number] Univers 15:00:00 15:00:00 [facility] Results This patient has no known results.
[2021-06-20 21:31] LABS: Protime INR 1.06
[2021-06-20 21:34] LABS: Absolute Lymphocytes (CBC) 2.1 K/uL (0.7-4.9); Basophils % 0.9 % (0-1.3); Hematocrit 47.9 % (39.6-49.0); Lymphocytes % 24.7 % (15.3-44.8); MPV 8.6 fL (7.6-11.3); RBC Red Blood Cell Count 4.89 M/uL (4.33-5.43)
[2021-06-20 21:41] LABS: ALT/SGPT 49 U/L (12-78); AST/SGOT 25 U/L (15-37); Albumin 3.7 g/dL (3.4-5.0); BUN Blood Urea Nitrogen 13 mg/dL (7-18); Bicarbonate 23 mmol/L (21-32); Bilirubin Direct 0.1 mg/dL (0-0.2); Bilirubin Total 0.5 mg/dL (0.2-1.0); Glucose Level 86 mg/dL (74-106); Magnesium 2.3 mg/dL (1.8-2.4); Potassium 3.9 mmol/L (3.5-5.1); Protein, Total 8.2 g/dL (6.4-8.2); Sodium Level 137 mmol/L (136-145)
[2021-06-20 21:44] LABS: Alkaline Phosphatase 70 U/L (45-117); NT PRO-BNP 19 pg/mL (<125); Troponin (Emerg Dept Use Only) < 0.02 ng/mL (0.0-0.045)
--- NOTE | 2021-06-20 21:58 | RAD REPORT ---
EXAM DESCRIPTION: Matt Single View06/20/2021 9:54 pm CLINICAL HISTORY: Dizziness COMPARISON: November 2020 FINDINGS: The lungs appear clear of acute infiltrate. The heart is normal size IMPRESSION: No acute abnormalities displayed
--- NOTE | 2021-06-20 22:06 | RAD REPORT ---
EXAM DESCRIPTION: CT - Head Brain Wo Cont - 06/20/2021 9:41 pm CLINICAL HISTORY: Dizziness COMPARISON: November 2020 TECHNIQUE: Computed axial tomography of the head was obtained. IV contrast was not requested. All CT scans are performed using dose optimization technique as appropriate and may include automated exposure control or mA/KV adjustment according to patient size. FINDINGS: An intracranial bleed is not seen . The ventricles are normal in caliber. No extra-axial fluid collection is noted. Fluid within the sinuses/ mastoids is not seen. IMPRESSION: No acute intracranial abnormality is seen. If patient's symptoms persist MRI of the bra in would be recommended.
[2021-06-20 23:17] LABS: Barbiturates NEGATIVE (NEGATIVE); Benzodiazepines NEGATIVE (NEGATIVE); Cocaine NEGATIVE (NEGATIVE); METHAMPHETAM NEGATIVE (NEGATIVE); Methadone NEGATIVE (NEGATIVE); Opiates NEGATIVE (NEGATIVE); Phencyclidine NEGATIVE (NEGATIVE); THC Cannibis POSITIVE (NEGATIVE)
[2021-06-20 23:34] LABS: Urine Blood 1+ (Negative); Urine Glucose Negative (Negative); Urine Protein Negative (Negative); Urine Specific Gravity >=1.030 (1.005-1.030); Urine pH 5.5 (5.0-7.0)
--- NOTE | 2021-06-20 23:44 | ER ---
Nurse's Notes [facility] Name: Rishabh Jackson Age: 65 yrs Sex: Male : 1955 Arrival Date: 06/20/2021 Time: 12:58 Bed 16 Private MD: Diagnosis: Dizziness and giddiness;Elevated blood-pressure reading, without diagnosis of hypertension Presentation: 06/20 13:43 Chief complaint: Patient states: "I feel lightheaded. It started last , it's ss just getting worse.". Coronavirus screen: Client denies travel out of the [place] in the last 14 days. Ebola Screen: Patient denies exposure to infectious person. Patient denies travel to an Ebola-affected area in the 21 days before illness onset. Initial Sepsis Screen: Does the patient meet any 2 criteria? No. Patient's initial sepsis screen is negative. Does the patient have a suspected source of infection? No. Patient's initial sepsis screen is negative. Risk Assessment: Do you want to hurt yourself or someone else? Patient reports no desire to harm self or others. Onset of symptoms was June 13, 2021. 13:43 Method Of Arrival: Ambulatory ss 13:43 Acuity: RHONDA 3 ss Historical: - Allergies: 13:44 No Known Allergies; ss - Home Meds: 13:44 None [Active]; ss - PMHx: 13:44 None; ss - PSHx: 13:44 None; ss - Immunization history:: Client reports having NOT received the Covid vaccine. - Social history:: Smoking status: Patient reports use of chewing tobacco. Vital Signs: 13:43 BP 157 / 84; Pulse 67; Resp 15; Temp 98.6(O); Pulse Ox 99% on R/A; Weight 77.11 kg; ss Height 5 ft. 6 in. (167.64 cm); Pain 0/10; 20:40 BP 154 / 89; Pulse 60; Resp 16; Temp 98.5(O); Pulse Ox 97% on R/A; lt3 13:43 Body Mass Index 27.44 (77.11 kg, 167.64 cm) ss ED Course: 12:58 Patient arrived in ED. mr 13:44 Triage completed. ss 13:44 Arm band placed on right wrist. ss 20:31 Johan Jade MD is Attending Physician. [facility] 20:45 Jarett Turcios, RN is Primary Nurse. mr2 21:41 CT Head Brain wo Cont In Process Unspecified. EDMS 21:54 XRAY Chest (1 view) In Process Unspecified. EDMS Administered Medications: No medications were administered Outcome: 23:44 Discharge ordered by . [facility] 06/21 01:07 Patient left the ED. mr2 Signatures: Dispatcher [employer] EDCO Barrett Nhung mr Keyana Damian, RN RN Johan Jade MD MD [facility] Jarett Turcios, RN RN mr2 [facility] Corrections: (The following items were deleted from the chart) 06/20 13:45 13:43 Resp 15bpm; 77.11 kg; Height 5 ft. 6 in.; BMI: 27.4; ss
--- NOTE | 2021-06-20 23:45 | EDPHYS ---
Physician Documentation [facility] Name: Rishabh Jackson Age: 65 yrs Sex: Male : 1955 Arrival Date: 06/20/2021 Time: 12:58 Bed 16 Private MD: ED Physician Johan Jade HPI: 06/20 20:59 This 65 yrs old Male presents to ER via Ambulatory with complaints of High mh7 Blood Pressure, Dizziness. 21:00 The patient presents with dizziness, lightheadedness. Onset: The symptoms/episode mh7 began/occurred 1 week(s) ago. Context: occurred at home, occurred while the patient was standing, just prior to the episode the patient experienced no apparent symptoms. Modifying factors: The symptoms are alleviated by Sitting down, the symptoms are aggravated by standing up. Associated signs and symptoms: Pertinent negatives: abdominal pain, agitation, ataxia, blurred vision, chest pain, combativeness, confusion, diaphoresis, focal weakness, head injury, headache, nausea, near-syncope, numbness, palpitations, seizure, shortness of breath, syncope, tingling, vomiting. Severity of symptoms: At their worst the symptoms were moderate 7 day(s) ago, in the emergency department the symptoms have improved moderately. Patient's baseline: Neuro: alert and fully oriented, Motor: no deficits, Ambulation: walks without assistance, Speech: normal. Historical: - Allergies: 13:44 No Known Allergies; ss - Home Meds: 13:44 None [Active]; ss - PMHx: 13:44 None; ss - PSHx: 13:44 None; ss - Immunization history:: Client reports having NOT received the Covid vaccine. - Social history:: Smoking status: Patient reports use of chewing tobacco. ROS: 21:00 Constitutional: Negative for fever, chills, and weight loss, Eyes: Negative for injury, mh7 pain, redness, and discharge, ENT: Negative for injury, pain, and discharge, Neck: Negative for injury, pain, and swelling, Cardiovascular: Negative for chest pain, palpitations, and edema, Respiratory: Negative for shortness of breath, cough, wheezing, and pleuritic chest pain, Abdomen/GI: Negative for abdominal pain, nausea, vomiting, diarrhea, and constipation, Back: Negative for injury and pain, : Negative for injury, bleeding, discharge, and swelling, MS/Extremity: Negative for injury and deformity, Skin: Negative for injury, rash, and discoloration, Neuro: Negative for headache, weakness, numbness, tingling, and seizure, Psych: Negative for depression, anxiety, suicide ideation, homicidal ideation, and hallucinations, Allergy/Immunology: Negative for hives, rash, and allergies, Endocrine: Negative for neck swelling, polydipsia, polyuria, polyphagia, and marked weight changes, Hematologic/Lymphatic: Negative for swollen nodes, abnormal bleeding, and unusual bruising. Exam: 21:00 Constitutional: This is a well developed, well nourished patient who is awake, alert, mh7 and in no acute distress. Head/Face: Normocephalic, atraumatic. Eyes: Pupils equal round and reactive to light, extra-ocular motions intact. Lids and lashes normal. Conjunctiva and sclera are non-icteric and not injected. Cornea within normal limits. Periorbital areas with no swelling, redness, or edema. Neck: Trachea midline, no thyromegaly or masses palpated, and no cervical lymphadenopathy. Supple, full range of motion without nuchal rigidity, or vertebral point tenderness. No Meningismus. Chest/axilla: Normal chest wall appearance and motion. Nontender with no deformity. No lesions are appreciated. Cardiovascular: Regular rate and rhythm with a normal S1 and S2. No gallops, murmurs, or rubs. Normal PMI, no JVD. No pulse deficits. Respiratory: Lungs have equal breath sounds bilaterally, clear to auscultation and percussion. No rales, rhonchi or wheezes noted. No increased work of breathing, no retractions or nasal flaring. Abdomen/GI: Soft, non-tender, with normal bowel sounds. No distension or tympany. No guarding or rebound. No evidence of tenderness throughout. Back: No spinal tenderness. No costovertebral tenderness. Full range of motion. Skin: Warm, dry with normal turgor. Normal color with no rashes, no lesions, and no evidence of cellulitis. MS/ Extremity: Pulses equal, no cyanosis. Neurovascular intact. Full, normal range of motion. Neuro: Awake and alert, GCS 15, oriented to person, place, time, and situation. Cranial nerves II-XII grossly intact. Motor strength 5/5 in all extremities. Sensory grossly intact. Cerebellar exam normal. Normal gait. Psych: Awake, alert, with orientation to person, place and time. Behavior, mood, and affect are within normal limits. Vital Signs: 13:43 BP 157 / 84; Pulse 67; Resp 15; Temp 98.6(O); Pulse Ox 99% on R/A; Weight 77.11 kg; ss Height 5 ft. 6 in. (167.64 cm); Pain 0/10; 20:40 BP 154 / 89; Pulse 60; Resp 16; Temp 98.5(O); Pulse Ox 97% on R/A; lt3 13:43 Body Mass Index 27.44 (77.11 kg, 167.64 cm) ss MDM: 23:42 Differential diagnosis: cardiac arrhythmia, hypovolemia, idiopathic dizziness, 7 near-syncope, syncope, vertigo. Data reviewed: vital signs, nurses notes, old medical records, lab test result(s), cardiac enzymes, CBC, electrolytes, urinalysis, urine drug screen, EKG, radiologic studies, CT scan, plain films. Data interpreted: Pulse oximetry: on room air is 97 %. Interpretation: normal. 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 Response to treatment: the patient's symptoms have resolved after treatment, the patient's blood pressure is in an acceptable range, mental status has returned to baseline, the patient no longer shows bradycardia, the patient is not short of breath, the patient is not tachycardic, the patient's pain is gone, the patient's temperature has normalized. 23:44 Patient medically screened. [facility] 06/20 20:48 Order name: Basic Metabolic Panel [facility] 06/20 20:48 Order name: CBC with Diff [facility] 06/20 20:48 Order name: LFT's [facility] 06/20 20:48 Order name: Magnesium [facility] 06/20 20:48 Order name: NT PRO-BNP; Complete Time: 21:49 [facility] 06/20 20:48 Order name: PT-INR; Complete Time: 21:49 [facility] 06/20 20:48 Order name: Troponin (emerg Dept Use Only); Complete Time: 21:49 [facility] 06/20 20:48 Order name: XRAY Chest (1 view); Complete Time: 22:03 [facility] 06/20 20:48 Order name: UDS; Complete Time: 23:29 [facility] 06/20 20:49 Order name: Basic Metabolic Panel; Complete Time: 21:49 [facility] 06/20 20:49 Order name: CBC with Automated Diff; Complete Time: 21:49 [facility] 06/20 20:49 Order name: Liver (Hepatic) Function; Complete Time: 21:49 [facility] 06/20 20:49 Order name: Magnesium; Complete Time: 21:49 [facility] 06/20 23:33 Order name: Urine Dipstick-Ancillary [place] [id number] 20:48 Order name: Cardiac monitoring [facility] 06/20 20:48 Order name: EKG - Nurse/Tech [facility] 06/20 20:48 Order name: IV Saline Lock [facility] 06/20 20:48 Order name: Labs collected and sent [facility] 06/20 20:48 Order name: O2 Per Protocol [facility] 06/20 20:48 Order name: O2 Sat Monitoring [facility] 06/20 20:48 Order name: Urine Dipstick-Ancillary (obtain specimen) [facility] 06/20 20:48 Order name: CT Head Brain wo Cont; Complete Time: 22:08 [facility] 06/20 20:49 Order name: Orthostatics; Complete Time: 22:07 [facility] Administered Medications: No medications were administered Disposition Summary: 06/20/21 23:44 Discharge Ordered Location: Home [facility] Problem: new [facility] Symptoms: have improved [facility] Condition: Stable [facility] Diagnosis - Dizziness and giddiness [facility] - Elevated blood-pressure reading, without diagnosis of hypertension [facility] Followup: [facility] - With: Private Physician - When: 1 - 2 days - Reason: Worsening of condition, Recheck today's complaints, Continuance of care, Re-evaluation by your physician Discharge Instructions: - Discharge Summary Sheet [facility] - Dizziness, [id number] [facility] Forms: - Medication Reconciliation Form [facility] - Thank You Letter [facility] - Antibiotic Education [facility] - Prescription Opioid Use [facility] Signatures: Dispatcher [employer] Kyeana Hu RN RN ss Johan Jade, MD RICHTER mh7
[2021-06-21 01:18] VITALS: BP 154/89; TEMP 98.5; O2SAT 97
== END 2021-06-21 01:07 | disposition home or self-care (01) ==
LOC: ER 12:55
DX: R03.0 Elevated blood-pressure reading, without diagnosis of hypertension (principal); F17.220 Nicotine dependence, chewing tobacco, uncomplicated
CPT/HCPCS: 36415; 70450; 71045; 80048; 80076; 80307; 81003; 83735; 83880; 84484; 85025; 85610; 99283